=== PATIENT | female | born 1960 | race Caucasian/White ===

== ENCOUNTER 2018-07-07 15:39 | Inpatient (IN) | payer BC ==
[~2018-07-07] VITALS: Ht 167.6 cm; Wt 63.5 kg
--- NOTE | ~2018-07-07 | HC ---
[facility] [place] [address] CONSULTATION Name: MERLINE LAM Katherine Room #: 363-P ADM IN M.R.#: [id number] Admission: 07/07/18 Attend Phys: Catrachito Layton DO Discharge: Date of : 62 Report #: [id number] THIS REPORT FOR: //name// CC: Catrachito Layton HISTORY OF PRESENT ILLNESS: The patient is seen at the request of Dr. Catrachito Layton regarding anemia developing following hospitalization. She presented to the Emergency Room with issues related to hypotension and orthostasis and was clinically felt to be dehydrated. She is feeling better since admission and IV fluids. Her hemoglobin, however, dropped from 12.8 to 9.8 and subsequently 9 over the course of this stay. She is unaware of any GI blood loss. She did not have an antecedent history of ulcer disease. PAST MEDICAL HISTORY: Significant for medically managed hypertension and mixed hyperlipidemia. She has been battling depression recently with loss of her job. MEDICATIONS: As listed on the MFR. ALLERGIES: None known. 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 She is and lives with her . She had a colonoscopy performed 6 years ago with no recent GI workup. REVIEW OF SYSTEMS: Negative for any sweats, chills, fevers, adenopathy. She has lost weight recently due to poor p.o. intake along with issues related to nausea. PHYSICAL EXAMINATION: GENERAL: Shows her to be alert. She went from the chair to the bed with no difficulties. HEENT: Normocephalic. NECK: Supple. CHEST: Clear. CARDIOVASCULAR: Normal S1, S2. ABDOMEN: Did not reveal any palpable spleen. LYMPHATICS: No palpable supraclavicular or axillary lymphadenopathy. BREASTS: No masses. EXTREMITIES: No clubbing, cyanosis, edema. NEUROLOGIC: No focal localizing signs. PSYCHIATRIC: Not agitated or confused. LABORATORY DATA: As discussed. She also has mild leukopenia and thrombocytopenia. ASSESSMENT: Anemia developing over the course of her hospitalization. [address] [address] CONSULTATION Name: MERLINE LAM Katherine Room #: 363-P [facility] IN ..#: [id number] Admission: 07/07/18 Attend Phys: Catrachito Layton, DO Discharge: Date of : 62 Report #: [id number] PLAN: I suspect most of this is that she was hemoconcentrated and dehydrated prior to admission and with IV fluids this is dilutional. An occult blood is pending to rule out GI blood loss and may well have gastritis or ulcer with her nausea, vomiting complaints. Her prior hemogram was reviewed from Dr. Layton's office, which was unremarkable in February. This should not represent aplasia in terms of the timing. Labs have been performed to rule out hemolysis and are pending at the time of this dictation. Thanks for allowing me to see her with you in consultation and asking me to participate in her care. By: 1451 [id number] MD margoth Mcqueen
--- NOTE | ~2018-07-07 | D ---
[facility] [place] [address] DISCHARGE SUMMARY Name: MERLINE LAM Room #: 223-P ADM IN M.R.#: [id number] Admission: 07/07/18 Attend Phys: Catrachito Layton, DO Discharge: Date of : 62 Report #: [id number] THIS REPORT FOR: //name// CC: Catrachito Layton DATE OF SERVICE: 07/11/2018 This 57-year-old white female was admitted with dehydration, hypotension, hyponatremia, reactive depression and alcohol abuse. The patient was laid off from her job suddenly 3 weeks ago after which time she became depressed and started drinking more heavily than ever. She was drinking 4-5 glasses of wine per day. She does have a history of daily alcohol drinking, but no previous history of documented alcoholism or complications of same. Her other history included hypertension, mixed hyperlipidemia, mild peripheral neuropathy, anxiety, depression, allergic rhinitis. HOSPITAL COURSE: INITIAL PHYSICAL EXAMINATION: GENERAL: Revealed a weak, hypotensive white female, very flat affect. VITAL SIGNS: BP 124/70 sitting with 96/60 standing, temperature was 99.4. HEAD AND NECK: Revealed dry mucosa. LUNGS: Clear. CARDIAC: Negative. ABDOMEN: Soft, without mass or tenderness. EXTREMITIES: Had no edema. NEUROLOGIC: She did have sensory deficit in her feet, missing 6/10 monofilament sticks to her toes. Affect was very flat. Initial urinalysis showed many wbc's and subsequent urine culture grew out E. coli. Sodium was low on admission at 113, potassium low at 3.2, BUN 21, creatinine 1.0, CO2 31, blood sugar 132, calcium 10.3, GOT 109, GPT 122, albumin 5.0, bilirubin and alkaline phosphatase normal. Cholesterol 354, HDL 237, LDL 109. Serum alcohol less than 10 on admission. The patient was admitted, placed on alcohol withdrawal protocol, given lorazepam, IV fluids. Her subsequent hemoglobin dropped to 8.8. Her white count dropped to 3.0. Platelets dropped to 140,000. She was seen in consult by Dr. Lily Cheema. Her anemia workup was essentially negative, it was believed secondary to dehydration and nutritional deficits. Her final sodium was 135, potassium 5.1, CO2 24, BUN 6, creatinine 0.6, estimated GFR 103, blood sugar 105, calcium 9.4, GOT 36, GPT 75, alkaline phosphatase 67, albumin 3.5. Lipase, vitamin B12, folic acid, and thyroid function were normal. On 07/11/2018, the patient was less tremulous, was calmer. She did have some very mild nausea, but was eating and had stable vital signs. She had scheduled herself to be seen at [facility] in [place], [place] for alcohol rehabilitation counseling as an outpatient. She was discharged on 07/11/[address] [address] DISCHARGE SUMMARY Name: MERLINE LAM Katherine Room #: 223-P [facility] IN ..#: [id number] Admission: 07/07/18 Attend Phys: Catrachito Layton DO Discharge: Date of : 62 Report #: [id number] a low-fat, low-salt diet, on lorazepam 1 mg q. 4 h. p.r.n. anxiety, cefuroxime 250 mg b.i.d. for another 3 days, thiamine 100 mg daily for a month, atorvastatin 10 mg daily, lisinopril 20 mg daily. She will see me in 10 days for followup exam. By: 0811 0914 Catrachito Layton DO /nt
[2018-07-07 15:40] VITALS: BP 125/78
[2018-07-07 16:50] LABS: ABSOLUTE NEUTROPHILS 4.3 thou/uL (1.4-8.2); BASOPHILS 0.1 % (0.0-2.0); EOSINOPHILS 0.1 % (0.0-3.0); HEMATOCRIT 35.5 % (37.0-47.0); HEMOGLOBIN 12.8 gm/dL (12.0-15.0); LYMPHOCYTES 10.4 % (24.0-44.0); MCH 33.2 pg (26.0-34.0); MCV 92.2 fL (80.0-100.0); MONOCYTES 10.5 % (1.0-8.0); PLATELET COUNT 192 thou/uL (150-400); POLYS 78.9 % (36.0-66.0); RBC 3.86 mil/uL (4.20-5.00); RDW 11.6 % (10.5-14.5); WBC 5.4 thou/uL (4.0-11.0)
[2018-07-07 16:53] LABS: ANION GAP 8 mmol/L (7-16); BUN 21 mg/dL (7-18); CALCIUM 10.3 mg/dL (8.5-10.1); CHLORIDE 74 mmol/L (98-107); CO2 31 mmol/L (21-32); CREATININE 1.1 mg/dL (0.6-1.0); GLUCOSE 132 mg/dL (74-106); POTASSIUM 3.2 mmol/L (3.5-5.1)
[2018-07-07 16:55] LABS: SODIUM 113 mmol/L (136-145)
[2018-07-07 17:02] LABS: SGOT 109 U/L (15-37); SGPT 122 U/L (30-65); TOTAL BILIRUBIN 0.7 mg/dL (<0.1-1.0); TOTAL PROTEIN 8.8 g/dL (6.4-8.2); TROPONIN-I <0.06 ng/mL (<0.06)
[2018-07-07 17:48] LABS: URINE CLARITY CLEAR; URINE COLOR YELLOW; URINE GLUCOSE-RANDOM* TRACE (Negative); URINE PROTEIN (DIPSTICK) NEGATIVE (Negative)
[2018-07-07 17:49] LABS: URINE BILIRUBIN NEGATIVE (Negative); URINE BLOOD TRACE (Negative); URINE KETONES NEGATIVE (Negative); URINE LEUKOCYTES-REFLEX 3+ (Negative); URINE NITRITE-REFLEX NEGATIVE (Negative); URINE UROBILINOGEN 0.2 E.U./dl (0.2-1.0)
[2018-07-07 17:56] LABS: BACTERIA-REFLEX >30 Many /HPF (None Seen); CASTS None Seen /LPF (None Seen); CRYSTALS None Seen /LPF (None Seen); SQUAMOUS 0-3 Few /LPF (0-3); URINE RBC 0-2 Rare /HPF (0-2); URINE WBC-REFLEX >25 Many /HPF (0-5); WBC CLUMPS Few (None Seen)
[2018-07-07 19:07] VITALS: BP 125/78
[2018-07-07 19:10] LABS: CHOLESTEROL 354 mg/dL (<200); TC:HDL 1.5 Ratio (Not establshd); TRIGLYCERIDE 43 mg/dL (<150); VLDL 9 mg/dL (<40)
[2018-07-07 19:27] LABS: HDL CHOLESTEROL 237 mg/dL (>40); LDL CHOLESTEROL 109 mg/dL (<100); SERUM ASSESSMENT Clear
[2018-07-07 19:45] VITALS: BP 132/66
[2018-07-07 20:05] VITALS: BP 159/79
[2018-07-07 23:49] VITALS: BP 111/63
[2018-07-08] MEDS ORDERED: XANAX1 MG PO (02:15)
[2018-07-08] MEDS ORDERED: LIPITOR10 MG PO (02:16)
[2018-07-08] MEDS ORDERED: LISINOPRIL20 MG PO (02:17)
[2018-07-08] MEDS ORDERED: HYDROCHLOROTHIA25 M2 PO (02:17)
--- NOTE | 2018-07-08 04:03 | NUR ---
Patient making slow progress towards outcome goals. Admission history and assessments completed. Careplan initiated. IVfluids infusing. Na slowly improving. NPO after MN for abdominal US. CIWA 1-4, Lorazepam given for anxiety with some relief.
[2018-07-08 05:10] VITALS: BP 139/81
[2018-07-08 05:36] LABS: HEMATOCRIT 27.9 % (37.0-47.0); MCH 33.2 pg (26.0-34.0); MCV 94.8 fL (80.0-100.0); RBC 2.95 mil/uL (4.20-5.00); RDW 11.7 % (10.5-14.5); WBC 3.7 thou/uL (4.0-11.0)
[2018-07-08 05:39] LABS: HEMOGLOBIN 9.8 gm/dL (12.0-15.0)
[2018-07-08 05:40] LABS: INR 1.1; PROTIME 11.8 Seconds (9.3-11.4)
[2018-07-08 05:44] LABS: ALBUMIN 3.5 g/dL (3.4-5.0); CALCIUM 8.8 mg/dL (8.5-10.1); CREATININE 0.7 mg/dL (0.6-1.0); TOTAL BILIRUBIN 0.4 mg/dL (<0.1-1.0); TOTAL PROTEIN 6.4 g/dL (6.4-8.2)
[2018-07-08 05:52] LABS: POTASSIUM 2.9 mmol/L (3.5-5.1)
[2018-07-08 08:17] LABS: % SATURATION 52 % (20-39); IRON 102 ug/dL (50-170); TIBC 198 ug/dL (250-450)
--- NOTE | 2018-07-08 08:17 | EKG ---
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
[2018-07-08 08:24] VITALS: BP 144/86
[2018-07-08 12:00] VITALS: BP 122/74
--- NOTE | 2018-07-08 14:37 | NUR ---
CONT ON ELECTROLYTE REPLACEMENT. SHE IS ALERT ORIENTED X4. SHE AMBULATES WITH STEADY GAIT. DENIES PAIN WHEN ASKED. STATES SHE FEELS MUCH BETTER THIS AM. ALSO STATED SHE HAS NUMEROUS PROBLEMS AT HOME AND SHE RECENTLY LOST HER JOB. EXPLORE PATIENT'S FEELINGS ABOUT HER STATE AND WAYS TO STAY POSITIVE. WILL CONT [facility] PLAN OF CARE.
[2018-07-08 17:15] VITALS: BP 121/74
[2018-07-08 19:49] VITALS: BP 129/73
[2018-07-09 03:44] VITALS: BP 143/86
--- NOTE | 2018-07-09 05:01 | NUR ---
FOLLOWING POC WITH REPLACEMENT OF ELECTROLYTES. PT STATED AT 2144 THAT SHE WAS HAVING SOME NAUSEA. CALLED DR. HALLMAN TO GET PRN OF ZOFRAN Q6. CIWA SCORES ARE LOW WITH 6 AT 2000 AND 3'S WITH THE REST OF THE ASSESSMENTS. GAVE ATIVAN PO ONLY ONCE AT THE 2100. VSS, AND PT STATES SHE IS NOT HAVING ANY PAIN. STILL TRYING TO OBTAIN A STOOL SAMPLE, WITH HAT IN THE BATHROOM. GAVE PT TB SKIN TEST, WITH THE LOCATION ON THE LEFT FOREARM AND CIRCLED THE AREA WITH A BLACK SHARPIE. HOURLY ROUNDING.
[2018-07-09 05:11] LABS: HEMATOCRIT 25.7 % (37.0-47.0); MCH 34.1 pg (26.0-34.0); MCV 97.3 fL (80.0-100.0); PLATELET COUNT 145 thou/uL (150-400); RBC 2.64 mil/uL (4.20-5.00); RDW 11.5 % (10.5-14.5)
[2018-07-09 05:37] LABS: ALBUMIN 3.3 g/dL (3.4-5.0); CALCIUM 8.5 mg/dL (8.5-10.1); CREATININE 0.6 mg/dL (0.6-1.0); PHOSPHORUS 1.7 mg/dL (2.5-4.9); POTASSIUM 4.2 mmol/L (3.5-5.1); TOTAL BILIRUBIN 0.3 mg/dL (<0.1-1.0); TOTAL PROTEIN 5.9 g/dL (6.4-8.2)
[2018-07-09 06:07] LABS: ABSOLUTE NEUTROPHILS 1.7 thou/uL (1.4-8.2)
[2018-07-09 06:08] LABS: PLATELET ESTIMATE DECREASED
--- NOTE | 2018-07-09 07:27 | H ---
[facility] [place] [address] HISTORY AND PHYSICAL Name: MERLINE LAM Room #: 363-P ADM IN M.R.#: [id number] Admission: 07/07/18 Attend Phys: Catrachito Layton DO Discharge: Date of : 62 Report #: [id number] THIS REPORT FOR: //name// CC: Catrachito Layton DATE OF SERVICE: 07/07/2018 LOCATION: Room 363. 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 She became very depressed, started drinking more wine daily, up to 4-5 glasses a day, she says, lost her appetite, has had some nausea and has lost up to 15 pounds over the next 3 weeks. She came to my office and was found to be hypotensive and dry. I sent her to the Emergency Room for more thorough evaluation. She states she has been drinking for many years, has only gone 1-2 days at the most without a drink. Usually drinks one to two glasses of wine per day, but has been drinking 4 or 5 classes daily recently. She denies melena, vomiting, diarrhea, chest pain, fever, chills or dysuria. PAST MEDICAL HISTORY: Hypertension, mixed hyperlipidemia, peripheral neuropathy, anxiety, depression, allergic rhinitis, peripheral venous insufficiency. MEDICATIONS: On admission, alprazolam 1 mg daily, vitamin C 1000 mg daily, multivitamin 1 daily, Chlor-Trimeton 4 mg daily as needed for allergies, atorvastatin 10 mg daily, lisinopril 20 mg daily, HCTZ 25 mg daily. ALLERGIES: None. 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 Her daughter is getting soon. However, this past week, the patient felt too dizzy or lightheaded to go looking for a wedding dress with her daughter. The patient had a negative colonoscopy at age 51. PHYSICAL EXAMINATION: GENERAL: Weak ill-appearing white female. VITAL SIGNS: Initial BP 124/70 sitting, but 96/60 standing. Heart rate 112, respirations 20, temperature 99.4. HEAD: No rash or trauma. EARS, NOSE AND THROAT: Mucosa is dry. No oral lesions. EYES: No icterus, conjunctivitis. NECK: Supple. LUNGS: Clear. Cough is dry. HEART: Rhythm regular without murmurs. [facility] [address] [place] [address] HISTORY AND PHYSICAL Name: MERLINE LAM Room #: 363-P [facility] IN [facility]#: [id number] Admission: 07/07/18 Attend Phys: Catrachito Layton DO Discharge: Date of : 62 Report #: [id number] ABDOMEN: Soft, without mass or tenderness, organomegaly or guarding. EXTREMITIES: No cyanosis, clubbing or edema. PSYCHIATRIC: Affect is flat. She is sitting in her feet. She has significant sensory deficit on her feet, missing 6/10 monofilament sticks to her toes. Initial urinalysis shows many wbc's. Chest x-ray, she has atelectasis. LABORATORY DATA: Initial sodium is low at 113, potassium of 3.2, BUN 21, creatinine 1.0, CO2 of 31, blood sugar 132, calcium 10.3, magnesium 2.2, total bilirubin and alkaline phosphatase normal. SGOT 109, SGPT 122. Albumin 5.0. Cholesterol 354, LDL 109, HDL 237. Serum alcohol less than 10. After overnight hydration, the patient's sodium is up to 127, potassium low at 2.9, BUN 12, creatinine 0.7. Hemoglobin is down to 9.8, MCV 94. White count 3700, platelets 155,000. IMPRESSION: 1. Severe hyponatremia and hypokalemia. 2. Anorexia, dehydration and weight loss. 3. Reactive depression. 4. Alcohol abuse. 5. History of hypertension. 6. History of peripheral neuropathy. 7. Orthostatic hypotension due to hypovolemia. 8. Mixed hyperlipidemia. PLAN: IV rehydration. Correct sodium and electrolyte abnormalities. Screening abdominal sonogram for liver enzyme abnormality, which is probably due to alcohol. Her peripheral neuropathy may be due to alcohol as well. We will check stools for blood. Because of anemia, evaluated for possible causes of weight loss. Watch for alcohol withdrawal. <ELECTRONICALLY SIGNED> By: Catrachito Layton DO 07/09/18 0727 0749 0843 Catrachito Layton DO /nt
[2018-07-09 08:05] VITALS: BP 142/88
--- NOTE | 2018-07-09 14:42 | NUR ---
LATE ENTRY FROM 07/08/18 ASSESSMENT: CM REVIEWED CHART AND MET WITH PATIENT AND HER AT THE BEDSIDE. PT IS ALERT AND ORIENTED X4. PT REPORTS SHE LIVES AT HOME WITH HER . 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 PT WAS ADMITTED WITH HYPONATREMIA AND HAS HX OF ETOH ABUSE. CM DISCUSSED ROLE. PT STATES SHE WOULD LIKE TO SEE SOMEONE TO DISCUSS HER DRINKING. CM DISCUSSED THERE ARE MULTIPLE DIFFERENT PROGRAMS INPATIENT/OUTPATIENT. CM PROVIDED PATIENT WITH AA RESOURCE SHEET AND ETOH RESOURCE SHEET. CM ALSO PROVIDED PATIENT WITH CRISIS HOTLINE NUMBERS/DETOX CENTERS. CM ALSO PROVIDED PATIENT WITH [facility] INTAKE NUMBER TO CALL AND REQUEST ABOUT ANY INPATIENT/OUTPATIENT SERVICES THEY HAVE TO OFFER AND PT WAS INTERSTED. CM WILL CONTINUE TO FOLLOW TO ASSIST NEEDED.
[2018-07-09 17:04] VITALS: BP 142/77
--- NOTE | 2018-07-09 17:53 | NUR ---
ASSUMED PATIENT CARE AT 0700. A/0 X4. ANXIOUS. UP AD WINIFRED. PROGRESSING TOWARDS POC GOALS.
[2018-07-09 19:32] VITALS: BP 130/82
[2018-07-10 03:56] VITALS: BP 146/95
--- NOTE | 2018-07-10 04:22 | NUR ---
AFTER PT MOVED FROM CCT TO M/S, PT WAS MOVED TO 349 (349 ROOM DOES NOT GET GOOD TELE CENTER REP). PT STILL COMPLAINS ABOUT NAUSEA, STOMACH CRAMPING, AND QUEASINESS. GAVE IV ZOFRAN 2x DURING SHIFT. FOLLOWING POC AND PROGRESSING TO DC GOALS AND HOURLY ROUNDING. CALL LIGHT WITHIN REACH.
[2018-07-10 06:40] LABS: ABSOLUTE NEUTROPHILS 2.3 thou/uL (1.4-8.2); ABSOLUTE RETIC COUNT 0.0304 10^6/uL; BASOPHILS 1.3 % (0.0-2.0); EOSINOPHILS 3.8 % (0.0-3.0); HEMATOCRIT 25.6 % (37.0-47.0); HEMOGLOBIN 8.8 gm/dL (12.0-15.0); LYMPHOCYTES 31.2 % (24.0-44.0); MCH 33.7 pg (26.0-34.0); MCHC 34.6 g/dL (28.0-37.0); MCV 97.5 fL (80.0-100.0); MONOCYTES 11.2 % (1.0-8.0); OBSERVED RETIC COUNT 1.16 % (0.6-2.6); PLATELET COUNT 175 thou/uL (150-400); POLYS 52.5 % (36.0-66.0); RBC 2.62 mil/uL (4.20-5.00); RDW 11.8 % (10.5-14.5); WBC 4.4 thou/uL (4.0-11.0)
[2018-07-10 06:54] LABS: ALBUMIN 3.4 g/dL (3.4-5.0); ANION GAP 10 mmol/L (7-16); BUN 7 mg/dL (7-18); CALCIUM 8.8 mg/dL (8.5-10.1); CHLORIDE 104 mmol/L (98-107); CO2 21 mmol/L (21-32); CREATININE 0.7 mg/dL (0.6-1.0); DIRECT BILIRUBIN < 0.1 mg/dL (<0.1-0.3); GLUCOSE 96 mg/dL (74-106); PHOSPHORUS 3.4 mg/dL (2.5-4.9); POTASSIUM 4.9 mmol/L (3.5-5.1); SGOT 54 U/L (15-37); SGPT 85 U/L (30-65); SODIUM 135 mmol/L (136-145); TOTAL BILIRUBIN 0.2 mg/dL (<0.1-1.0)
[2018-07-10 07:10] VITALS: BP 138/84
[2018-07-10 12:30] VITALS: BP 135/88
--- NOTE | 2018-07-10 16:16 | NUR ---
pt to move to senior suites. report given at this time. pt moving to room 224. pt to radha evans, 07/11/18
--- NOTE | 2018-07-10 16:23 | NUR ---
PT HAD TB LEFT ARM 0MM NEGATIVE.
[2018-07-10 19:58] VITALS: BP 137/78
--- NOTE | 2018-07-11 00:25 | NUR ---
pt presents with a flat affect,alert and oriented x 4, independent of adls. complains of nausea and abdominal pain and has utilized tylenol and zofran, pt is anxious .kind of restless and reports poor sleep.continues on CIWA ,lorazepam 2mg prn administered.reportd bm on 07/10,on ra. negative skin tb skin test on the left forearm. continues on ivf pottasium phosphate.
[2018-07-11 06:42] LABS: HEMATOCRIT 27.1 % (37.0-47.0); HEMOGLOBIN 9.3 gm/dL (12.0-15.0); MCH 33.5 pg (26.0-34.0); MCHC 34.3 g/dL (28.0-37.0); MCV 97.8 fL (80.0-100.0); PLATELET COUNT 208 thou/uL (150-400); RBC 2.77 mil/uL (4.20-5.00); RDW 11.8 % (10.5-14.5); WBC 4.3 thou/uL (4.0-11.0)
[2018-07-11 07:01] LABS: ALBUMIN 3.5 g/dL (3.4-5.0); CALCIUM 9.4 mg/dL (8.5-10.1); CREATININE 0.6 mg/dL (0.6-1.0); POTASSIUM 5.1 mmol/L (3.5-5.1); TOTAL BILIRUBIN 0.2 mg/dL (<0.1-1.0); TOTAL PROTEIN 6.3 g/dL (6.4-8.2)
[2018-07-11] MEDS ORDERED: VITAMIN B-1100 M2 PO (08:00)
[2018-07-11] MEDS ORDERED: ZOFRAN4 MG PO (08:00)
[2018-07-11 08:01] VITALS: BP 153/80
[2018-07-11] MEDS ORDERED: CEFUROXIME250 MG PO ×2 (08:01→08:05)
[2018-07-11] MEDS ORDERED: VITAMIN B-1100 M1 PO (08:04)
[2018-07-11 08:21] VITALS: BP 153/80
[2018-07-11 08:44] LABS: ABSOLUTE NEUTROPHILS 2.4 thou/uL (1.4-8.2); PLATELET ESTIMATE NORMAL
[2018-07-11 08:51] VITALS: BP 153/80
[2018-07-11 09:23] VITALS: BP 153/80
--- NOTE | 2018-07-11 10:33 | NUR ---
ASSUMED CARE OF PATIENT THIS MORNING. PATIENT IS ALERT AND ORIENTED X 4. PATIENT DISCHARGING THIS MORNING. HOME WITH SELF CARE WILL FOLLOW UP WITH PHYSICIAN ON THE 07/23. PATIENT'S IV WAS REMOVED. PATIENT RECEIVED TYLENOL FOR AB PAIN, ZOFRAN FOR NAUSEA, AND ATIVAN OR MILD AGITATION. PATIENT TOOK A SHOWER THIS MORNING. NO ABNORMAL FINDINGS ASSESSMENT FINDINGS.
--- NOTE | 2018-07-11 10:58 | NUR ---
AM IN AGREEANCE WITH PT ASSESSMENT. PT BEING DC TO HOME.
== END 2018-07-11 10:46 | disposition home or self-care (01) | DRG 312 ==
LOC: ER 15:39 → 3W 17:35 → EROBS 17:35 → 3W 19:50 → SICU 07-10 16:37 → ENTRNSPT 07-11 09:14 → EDTRNSPTSTS 07-11 09:16 → SICU 07-11 10:46
PROVIDERS: Physician Assistant; ADMIT Internal Medicine
DX: I95.1 Orthostatic hypotension (principal); E87.1 Hypo-osmolality and hyponatremia; N17.9 Acute kidney failure, unspecified; F10.239 Alcohol dependence with withdrawal, unspecified; N39.0 Urinary tract infection, site not specified; D61.818 Other pancytopenia; K70.9 Alcoholic liver disease, unspecified; E86.0 Dehydration; E87.6 Hypokalemia; F32.9 Major depressive disorder, single episode, unspecified; G62.9 Polyneuropathy, unspecified; F41.9 Anxiety disorder, unspecified; E86.1 Hypovolemia; E78.2 Mixed hyperlipidemia; E55.9 Vitamin D deficiency, unspecified; I10 Essential (primary) hypertension; R74.0 Nonspecific elevation of levels of transaminase and lactic acid dehydrogenase [LDH]; B96.20 Unspecified Escherichia coli [E. coli] as the cause of diseases classified elsewhere; Z79.899 Other long term (current) drug therapy
CPT/HCPCS: 10779; 10879; 15002